=== PATIENT | male | born 1950 | race Caucasian/White ===

== ENCOUNTER 2018-10-16 00:47 | Inpatient (IN) | payer MEDICARE ==
[~2018-10-16] VITALS: Ht 162.6 cm; Wt 58.2 kg
[2018-10-16] MEDS ORDERED: ALBUTEROL (0.083%) 2.5MG/3ML NEB HHN STA (01:15)
[2018-10-16] MEDS ORDERED: IPRATROPIUM BROMIDE (0.02%) 0.5MG/2.5ML NEB HHN STA (01:15)
[2018-10-16 01:37] LABS: BASOPHILS % 0.5 % (0.0-2.0); EOSINOPHILS % 4.8 % (0.0-5.0); HEMATOCRIT. 46.2 % (42.0-52.0); HEMOGLOBIN. 15.5 g/dL (14.0-18.0); LYMPHOCYTES % 15.9 % (20.0-50.0); MEAN CORPUSCULAR HEMOGLOBIN 30.3 pg (28.0-32.0); MEAN CORPUSCULAR VOLUME 90.1 fL (80.0-94.0); MEAN PLATELET VOLUME 7.3 fl (7.4-10.4); MONOCYTES % 5.9 % (2.0-8.0); NEUTROPHILS % 72.9 % (40.0-76.0); PLATELET 244 x1000/uL (130-400); RED BLOOD CELL COUNT 5.12 mill/uL (4.7-6.1)
[2018-10-16 01:45] LABS: CHLORIDE 102 mEq/L (98-107)
[2018-10-16] MEDS ORDERED: PREDNISONE 20MG TABLET PO ONE (02:15)
[2018-10-16] MEDS ORDERED: SODIUM CHLORIDE 0.9% 1,000 ML IV ONE (02:35)
[2018-10-16] MEDS ORDERED: ONDANSETRON HCL 4MG/2ML INJ IV ONE (03:30)
[2018-10-16] MEDS ORDERED: DIPHENHYDRAMINE 50MG/ML VIAL IV PRN (05:30)
[2018-10-16] MEDS ORDERED: LORAZEPAM 2MG/ML CPJ IV PRN (05:30)
[2018-10-16] MEDS ORDERED: NA PHOS,M-B/NA PHOS,DI-BA ENEMA 118ML PR PRN (05:30)
[2018-10-16] MEDS ORDERED: ACETAMINOPHEN 325MG TABLET PO PRN (05:30)
[2018-10-16] MEDS ORDERED: HYDROCODONE/ACETAMINOPHEN 10/325MG TABLET PO PRN (05:30)
[2018-10-16] MEDS ORDERED: GUAIFENESIN 200MG/10ML SUGAR FREE UDC PO PRN (05:30)
[2018-10-16] MEDS ORDERED: DOCUSATE SODIUM 100MG CAPSULE PO PRN (05:30)
[2018-10-16] MEDS ORDERED: CLONIDINE 0.1MG TABLET PO PRN (05:30)
[2018-10-16] MEDS ORDERED: IPRATROPIUM/ALBUTEROL 0.5-3(2.5)MG/3ML NEB INH PRN (05:30)
[2018-10-16] MEDS ORDERED: MAGNESIUM/ALUMINUM HYDROXIDE/SIMETHICONE 30ML UDC PO PRN (05:30)
[2018-10-16] MEDS ORDERED: ONDANSETRON HCL 4MG/2ML INJ IV PRN (05:30)
[2018-10-16 06:12] LABS: CREATINE KINASE 462 IU/L (39-308)
[2018-10-16 06:13] LABS: CREATINE KINASE MB FRACTION 16.3 ng/mL (0.5-3.6)
[2018-10-16 08:50] VITALS: BP 147/77
[2018-10-16] MEDS ORDERED: HYDROMORPHONE HCL/PF 2MG/ML CPJ IV PRN (09:53)
[2018-10-16] MEDS: METHYLPREDNISOLONE SOD SUCC 125 MG/2 ML VIAL IV SCH ×2 (11:58→14:53)
[2018-10-16] MEDS: ASPIRIN 81MG EC TABLET PO SCH (11:59)
[2018-10-16] MEDS: ENOXAPARIN 40MG/0.4ML SYR SUBCUT SCH (11:59)
[2018-10-16 12:00] VITALS: BP 138/74
[2018-10-16] MEDS: SODIUM CHLORIDE 0.9% INJ 3ML FLUSH IVF SCH ×2 (14:53→21:46)
[2018-10-16 15:46] LABS: CREATINE KINASE 329 IU/L (39-308)
[2018-10-16 15:47] LABS: CREATINE KINASE MB FRACTION 11.5 ng/mL (0.5-3.6)
[2018-10-16 16:00] VITALS: BP 140/64
[2018-10-16] MEDS ORDERED: ALBUTEROL (0.5%) 2.5MG/0.5ML NEB HHN PRN (19:45)
[2018-10-16 20:00] VITALS: BP 130/70
[2018-10-16] MEDS: ALBUTEROL (0.083%) 2.5MG/3ML NEB HHN SCH (20:21)
[2018-10-16 22:34] LABS: BG BASE EXCESS 1.2 mmol/L (-2.0-2.0); BG CARBOXYHEMOGLOBIN 0.8 % (0.5-1.5); BG DEOXYHEMOGLOBIN 8.6 % (0.0-5.0); BG FRACTION INSPIRED OXYGEN 21; BG HCO3 ACT 26.1 mmol/L (22.0-26.0); BG METHEMOGLOBIN 0.3 % (0.0-1.5); BG OXYGEN SATURATION 91.3 % (92.0-98.5); BG OXYHEMOGLOBIN 90.3 % (94.0-97.0); BG PCO2 42.4 mmHg (35.0-45.0); BG PH 7.407 (7.350-7.450); BG PO2 61.5 mmHg (75.0-100.0); BG SAMPLE SITE LEFT RADIAL; BG TOTAL HEMOGLOBIN 13.9 g/dL (12.0-18.0); BG VENT MODE ROOM AIR
[2018-10-17] VITALS: BP 135/62
[2018-10-17] MEDS: METHYLPREDNISOLONE SOD SUCC 40 MG/ML VIAL IV SCH ×2 (00:19→08:42)
[2018-10-17] MEDS: ALBUTEROL (0.083%) 2.5MG/3ML NEB HHN SCH ×3 (00:32→07:34)
[2018-10-17 04:00] VITALS: BP 139/60
[2018-10-17] MEDS: SODIUM CHLORIDE 0.9% INJ 3ML FLUSH IVF SCH (06:25)
[2018-10-17 07:04] LABS: CHLORIDE 105 mEq/L (98-107)
[2018-10-17 07:23] LABS: HEMATOCRIT. 40.1 % (42.0-52.0); HEMOGLOBIN. 13.3 g/dL (14.0-18.0); MEAN CORPUSCULAR VOLUME 90.6 fL (80.0-94.0); MEAN PLATELET VOLUME 8.1 fl (7.4-10.4); PLATELET 244 x1000/uL (130-400); RED BLOOD CELL COUNT 4.43 mill/uL (4.7-6.1); RED CELL DISTRIBUTION WIDTH 14.5 % (11.6-14.6)
[2018-10-17 07:24] LABS: T4 FREE 1.13 ng/dL (0.76-1.46)
[2018-10-17 07:25] LABS: LDL CHOLESTEROL 79 mg/dL (5-100)
[2018-10-17 07:26] LABS: HDL CHOLESTEROL 56 mg/dL (40-59)
[2018-10-17] MEDS: ASPIRIN 81MG EC TABLET PO SCH (08:42)
[2018-10-17] MEDS: ENOXAPARIN 40MG/0.4ML SYR SUBCUT SCH (08:44)
[2018-10-17 09:48] VITALS: BP 129/57
[2018-10-17 12:26] LABS: PLATELET ESTIMATE NORMAL
== END 2018-10-17 10:58 | disposition home or self-care (01) | DRG 189 ==
LOC: ER 00:47 → 7WST 02:43 → EDBEDREQ 02:50 → EDBEDREQTM 02:50 → ENRESERV 07:23
PROVIDERS: ADMIT Internal Medicine; ATTEND Internal Medicine
DX: J96.00 Acute respiratory failure, unspecified whether with hypoxia or hypercapnia (principal); J45.41 Moderate persistent asthma with (acute) exacerbation; R65.10 Systemic inflammatory response syndrome (SIRS) of non-infectious origin without acute organ dysfunction; E46 Unspecified protein-calorie malnutrition; I10 Essential (primary) hypertension; Z68.22 Body mass index [BMI] 22.0-22.9, adult
CPT/HCPCS: 36415; 36600; 71045; 80061; 82375; 82550; 82553; 82805; 83880; 84439; 84443; 84484; 93005; 94640; 96361; 96374; 96375; 99285; J1650; J2405; J2920; J2930; J7030; J7512; J7611; J7620